=== PATIENT | male | born 1965 | race African-American/Black ===

== ENCOUNTER 2018-01-27 04:08 | Emergency (ER) | payer OTHER, SELFPAY ==
[2018-01-27 04:14] VITALS: BP 151/90; PULSE 88; RESP 18; TEMP 37.5; O2SAT 97; BMI 37.4
[2018-01-27 04:15] VITALS: BP 131/89; PULSE 88; RESP 21; O2SAT 95
--- NOTE | 2018-01-27 04:16 | ED.SOB ---
HPI - SOB/Dyspnea General Chief Complaint: Shortness of Breath/Dyspnea Stated Complaint: shortness of breath Time Seen by Provider: 01/27/18 04:10 Source: patient and family Mode of arrival: ambulatory Limitations: no limitations History of Present Illness 52-year-old male, former smoker presents to the emergency department with a chief complaint of cough, shortness of breath and chest pain with deep breath over the course of the past few days. He denies any runny nose or sore throat. He is not dizzy nor weak or lightheaded. He has cough productive of yellowish sputum. He denies nausea, vomiting or diarrhea. He states deep breath not only exacerbates the cough but also worsens the pain MD Complaint: shortness of breath, cough, pain with inspiration and chest pain Onset (ago): hour(s) Severity: moderate Consistency/Duration: constant Relieving factors: rest and bronchodilators Exacerbating factors: nothing Associated symptoms: pain with inspiration, cough, wheezing and sputum production Related Data Home Medications Medication Instructions Recorded Confirmed [2 EYE DROPS GLAUCOMA] #0 03/13/12 08/05/17 Previous Rx's Medication Instructions Recorded azelastine 0.15 % (205.5 mcg) 1 spray NASAL BID #30 ml 08/05/17 nasal spray doxycycline monohydrate 100 mg PO BID 10 Days #20 cap 01/27/18 prednisone 20 mg PO DAILY #5 tab 01/27/18 Allergies Allergy/AdvReac Type Severity Reaction Status Date / Time No Known Drug Allergies Allergy Verified 08/05/17 14:02 Review of Systems Review of Systems All systems reviewed & are unremarkable except as noted in HPI and below Constitutional Denies chills, Denies fever(s), Denies lethargy and Denies weakness Eyes Denies change in vision, Denies eye discharge, Denies irritation and Denies loss of vision ENT Ears, Nose, Mouth, and Throat: Denies change in voice, Denies neck pain and Denies sore throat Cardiovascular Reports chest pain, Denies irregular heart rhythm, Denies lightheadedness, Denies palpitations, Denies dyspnea, Reports dyspnea on exertion and Denies orthopnea Respiratory Reports cough, Denies dyspnea, Reports dyspnea on exertion and Reports wheezing Gastrointestinal Gastrointestinal: Denies abdominal pain, Denies change in bowel habits, Denies diarrhea, Denies nausea and Denies vomiting Genitourinary Denies hematuria, Denies flank pain, Denies urinary incontinence and Denies urinary urgency Musculoskeletal Denies neck pain Integumentary/Breasts Denies pruritus, Denies erythema, Denies rash and Denies wounds Neurologic Denies confusion, Denies loss of vision and Denies weakness Psychiatric Denies anxiety, Denies confusion, Denies depression, Denies homicidal ideation and Denies suicidal ideation Endocrine Denies palpitations Hematologic/Lymphatic Denies easy bruising Allergic/Immunologic Reports wheezing [facility] Medical History Diabetes (Acute) HTN (hypertension) (Acute) Social History Smoking Status: Current some day smoker Exam Narrative Exam Narrative: GENERAL: 52-year-old male in some mild respiratory distress, clearly also a bit anxious HEAD: Atraumatic. Normocephalic. No temporal or scalp tenderness. EYES: Pupils equal round and reactive. Extraocular motions intact. No scleral icterus. No injection or drainage. ENT: Nose without bleeding, purulent drainage or septal hematoma. Throat without erythema, tonsillar hypertrophy or exudate. Uvula midline. Airway patent. NECK: Trachea midline. No JVD or lymphadenopathy. Supple, nontender, no meningeal signs. CARDIOVASCULAR: Regular rate and rhythm without murmurs, gallops, or rubs. Left anterior chest pain reproducible to palpation RESPIRATORY: Prolonged expiratory phase with expiratory wheeze. Deep breath induces cough GASTROINTESTINAL: Abdomen soft, non-tender, nondistended. No hepato-splenomegaly, or palpable masses. No guarding. EXTREMITIES: No clubbing, cyanosis, or edema. No joint tenderness, effusion, or edema noted. BACK: Nontender without deformity or crepitance. No flank tenderness. NEURO: AOx3. SKIN: No rash or erythema. Initial Vital Signs Initial Vital Signs: Vital Signs Temperature 99.5 F 01/27/18 04:14 Pulse Rate 88 01/27/18 04:14 Respiratory Rate 18 01/27/18 04:14 Blood Pressure 151/90 H 01/27/18 04:14 Pulse Oximetry 97 01/27/18 04:14 Course Course Narrative: Wells' Criteria for Pulmonary Embolism from [employer]ABUY on 01/27/2018 All calculations should be rechecked by clinician prior to use RESULT SUMMARY: 0.0 points Low risk group: 1.3% chance of PE in an ED population. Another study assigned scores ? 4 as ?PE Unlikely? and had a 3% incidence of PE. PERC Rule for Pulmonary Embolism from [employer]ABUY on 01/27/2018 All calculations should be rechecked by clinician prior to use RESULT SUMMARY: 2 criteria If any criteria are positive, the PERC rule cannot be used to rule out PE in this patient. INPUTS: Age ?51 ?> 1 = Yes HR ?100 ?> 0 = No Benjy? on room air <95% ?> 1 = Yes Unilateral leg swelling ?> 0 = No Hemoptysis ?> 0 = No Recent surgery or trauma ?> 0 = No Prior PE or DVT ?> 0 = No Hormone use ?> 0 = No INPUTS: Clinical signs and symptoms of DVT ?> 0 = No PE is #1 diagnosis OR equally likely ?> 0 = No Heart rate > 100 ?> 0 = No Immobilization at least 3 days OR surgery in the previous 4 weeks ?> 0 = No Previous, objectively diagnosed PE or DVT ?> 0 = No Hemoptysis ?> 0 = No Malignancy w/ treatment within 6 months or palliative ?> 0 = No Orders Ordered: Discontinued Medications Albuterol (Ventolin Hfa Prepack) 1 box MISC SEEINSTR ONE Stop: 01/27/18 07:12 Last Admin: 01/27/18 07:14 Dose: 1 box Albuterol/Ipratropium (Duoneb) 3 ml INH NOW ONE Stop: 01/27/18 04:22 Last Admin: 01/27/18 04:52 Dose: 3 ml Methylprednisolone (Solu-Medrol 125 Mg Vial) 125 mg IV NOW ONE Stop: 01/27/18 04:22 Last Admin: 01/27/18 04:35 Dose: 125 mg MDM - SOB/Dyspnea Differential Diagnosis Likely acute exacerbation of chronic obstructive airways disease, congestive heart failure, community acquired pneumonia, asthma with exacerbation and pulmonary embolism Lab Data Attestation: I reviewed the patient's lab results. Result diagrams: 01/27/18 04:20 01/27/18 04:20 Lab Results 01/27/18 01/27/18 01/27/18 Range/Units 04:20 04:20 04:20 WBC 6.6 (4.5-11.0) X10^3/uL RBC 5.52 (4.5-5.9) X10^6/uL Hgb 16.1 (13.5-17.5) g/dL Hct 46.8 (41-53) % MCV 84.9 (80-100) fL MCH 29.1 (26-34) PG MCHC 34.3 (30-36) % RDW 13.4 (11.6-14.8) % Plt Count 202 (150-400) X10^3/uL Neut % (Auto) Not Reportable Lymph % (Auto) Not Reportable Morrow % (Auto) Not Reportable Eos % (Auto) Not Reportable Baso % (Auto) Not Reportable Total Counted 100 Seg Neutrophils % 46.0 (38-70) % Band Neutrophils % 9.0 H (3-7) % Lymphocytes % (Manual) 28.0 (25-45) % Atypical Lymphs % 3.0 H ( - 0) % Monocytes % (Manual) 1.0 L (2-11) % Eosinophils % (Manual) 8.0 H (2-4) % Basophils % (Manual) 5.0 H (0-1) % Neutrophils # (Manual) 3630 (4479-0730) /uL RBC Morphology Normal morphology D-Dimer (<230) ng/mL Sodium 139 (137-145) mmol/L Potassium 4.4 (3.4-5.1) mmol/L Chloride 104 (98-107) mmol/L Carbon Dioxide 19 L (22-32) mmol/L BUN 13 (9-20) mg/dL Creatinine 0.80 (0.66-1.25) mg/dL Estimated GFR > 60.0 (>60) mL/min BUN/Creatinine Ratio 16.3 (6-22) Glucose 264 H (70-100) mg/dL Lactate (0.7-2.1) mmol/L Calcium 9.2 (8.4-10.2) mg/dL Total Bilirubin 0.4 (0.2-1.3) mg/dL AST 42 (17-59) IU/L ALT 47 (21-72) IU/L Alkaline Phosphatase 117 (38-126) U/L Total Creatine Kinase 265 H (55-170) U/L CK-MB (CK-2) 1.50 (<2.37) ng/mL CK-MB (CK-2) Rel Index 0.6 L (1.5-5.0) % Troponin I < 0.012 (0.01-0.034) ng/mL B-Natriuretic Peptide < 100.0 (<100) Total Protein 7.4 (6.3-8.2) g/dL Albumin 4.3 (3.5-5.0) g/dL Globulin 3.1 (1.7-4.1) g/dL Albumin/Globulin Ratio 1.4 (1.0-2.8) Lipase 92 (23-300) U/L Procalcitonin 0.55 H (<0.5) ng/mL Urine RBC (0-5/HPF) Urine WBC (0-5/HPF) Ur Squamous Epith Cells Urine Bacteria (None) Ur Culture Indicated? Micro UA Comment 01/27/18 01/27/18 01/27/18 Range/Units 04:20 04:20 05:35 WBC (4.5-11.0) X10^3/uL RBC (4.5-5.9) X10^6/uL Hgb (13.5-17.5) g/dL Hct (41-53) % MCV (80-100) fL MCH (26-34) PG MCHC (30-36) % RDW (11.6-14.8) % Plt Count (150-400) X10^3/uL Neut % (Auto) Lymph % (Auto) Morrow % (Auto) Eos % (Auto) Baso % (Auto) Total Counted Seg Neutrophils % (38-70) % Band Neutrophils % (3-7) % Lymphocytes % (Manual) (25-45) % Atypical Lymphs % ( - 0) % Monocytes % (Manual) (2-11) % Eosinophils % (Manual) (2-4) % Basophils % (Manual) (0-1) % Neutrophils # (Manual) (0555-9060) /uL RBC Morphology D-Dimer < 200 (<230) ng/mL Sodium (137-145) mmol/L Potassium (3.4-5.1) mmol/L Chloride (98-107) mmol/L Carbon Dioxide (22-32) mmol/L BUN (9-20) mg/dL Creatinine (0.66-1.25) mg/dL Estimated GFR (>60) mL/min BUN/Creatinine Ratio (6-22) Glucose (70-100) mg/dL Lactate 1.2 (0.7-2.1) mmol/L Calcium (8.4-10.2) mg/dL Total Bilirubin (0.2-1.3) mg/dL AST (17-59) IU/L ALT (21-72) IU/L Alkaline Phosphatase (38-126) U/L Total Creatine Kinase (55-170) U/L CK-MB (CK-2) (<2.37) ng/mL CK-MB (CK-2) Rel Index (1.5-5.0) % Troponin I (0.01-0.034) ng/mL B-Natriuretic Peptide (<100) Total Protein (6.3-8.2) g/dL Albumin (3.5-5.0) g/dL Globulin (1.7-4.1) g/dL Albumin/Globulin Ratio (1.0-2.8) Lipase (23-300) U/L Procalcitonin (<0.5) ng/mL Urine RBC None seen (0-5/HPF) Urine WBC None seen (0-5/HPF) Ur Squamous Epith Cells 1-5 /hpf Urine Bacteria None seen (None) Ur Culture Indicated? Cult not indicated Micro UA Comment Not Reportable Urine Dip Bedside Urine Glucose 100 mg/dl Bedside Urine Bilirubin - Negative Bedside Urine Ketone +/- 5 Urine Specific Eaton 1.015 Bedside Urine Occult Blood - Negative Bedside Urine pH 5.5 Bedside Urine Protein +/- 15 Bedside Urine Urobilinogen - Negative Bedside Urine Nitrite - Negative Bedside Urine Leukocytes - Negative Esterase Imaging Data Chest x-ray: Radiologist's impression: [address] [address] XRay Report Signed Patient: Mandie Joyce#: [id number] : 1965Acct:[id number] Age/Sex: 52 / MDate of Service: 01/27/18 Loc: ED Accession Number: [id number] Procedure: XR chest 1V Ordering Provider: Trey Cabrera D.O. PROCEDURE: XR CHEST 1V INDICATIONS: chest pain, shortness of breath TECHNIQUE: One view of the chest was acquired. COMPARISON: [facility], CT, CT ANGIO CHEST PE PROTOCOL, 01/27/2018, 5:57. [facility], CR, CHEST 1 VIEW, 03/13/2012, 1:10. FINDINGS: Surgical changes and devices: None. Lungs and pleura: No pleural effusions or pneumothorax. Lungs are clear. Mediastinum: Mediastinal contours appear normal. Heart size is normal. Bones and chest wall: No suspicious bony lesions. Overlying soft tissues appear unremarkable. IMPRESSION: No acute process. Dictated by: Barry Longoria M.D. on 01/27/2018 at 8:22 CT scan - chest: Radiologist's impression: [place] [address] CT Scan Report Signed Patient: Mandie Joyce#: [id number] : 1965Acct:[id number] Age/Sex: 52 / MDate of Service: 01/27/18 Loc: ED Accession Number: [id number] Procedure: CT angio chest PE protocol Ordering Provider: Trey Cabrera D.O. PROCEDURE: CT ANGIO CHEST PE PROTOCOL INDICATIONS: chest pain, shortness of breath TECHNIQUE: After the administration of intravenous contrast, 2 mm thick sections acquired from the pulmonary apices to the posterior costophrenic angles. 3-dimensional maximum intensity projection (MIP) coronal and sagittal reformats were then acquired through the thorax. For radiation dose reduction, the following was used: automated exposure control, adjustment of mA and/or kV according to patient size. COMPARISON: None. FINDINGS: Image quality: Pulmonary arterial opacification is suboptimal. Pulmonary arteries: Pulmonary arteries are normal in size, and demonstrate no definite intraluminal filling defects to suggest central pulmonary embolism. Lungs and pleura: Lungs are clear. No pleural effusions or pneumothorax. Central and peripheral airways are patent. Mediastinum: Heart size is normal, without pericardial effusion. No mediastinal or hilar adenopathy. Thoracic aorta is normal in caliber and enhancement. Esophagus is normal in caliber, without hiatal hernia. Bones and chest wall: No suspicious bony lesions. Ribs and thoracic spine appear intact throughout. Thyroid gland demonstrates a 10 mm calcified nodule within the right lobe. No axillary or supraclavicular adenopathy. Abdomen: Visualized upper abdominal solid organs appear normal in the early arterial phase of enhancement. IMPRESSION: 1. No definite pulmonary embolus. 2. Calcified right tyroid nodule, which could be further assessed with ultrasound, if clinically indicated. 3. Concordant with preliminary interpretation. Dictated by: Barry Longoria M.D. on 01/27/2018 at 8:27 Approved by: Barry Longoria M.D. on 01/27/2018 at 8:29 ECG Data Attestation: I personally reviewed and interpreted this ECG as follows: Prior ECG tracings: not available for review MDM Narrative Medical decision making narrative: 52-year-old smoking male with history of hypertension, hyperlipidemia, diabetes presents with shortness of breath, wheeze, cough and anterior pleuritic-type chest pain since yesterday. Wells criteria demonstrates low risk but patient is not perk negative hence addition of D-dimer, which (if positive) will dictate the use of CT angiogram Discharge Plan Departure Patient Disposition: Home Clinical Impression: Atypical pneumonia Discharge Date/Time: 01/27/18 07:46 Interventions: ED Discharge Assessment Last Done: 01/27/18 07:46 Instructions: DI for Atypical Pneumonia Activity Restrictions/Additional Instructions: *You have been diagnosed with [ atypical pneumonia ] *What to do: *Take medications as directed: your prescriptions have been electronically transmitted to [facility] at your request *Follow up with your primary care provider in 2-3 days, call for an appointment. Let them know you were seen in the Emergency Department and that we ask that you be seen in follow up *Return to ER if you should have any new, worsening or concerning symptoms Prescriptions: New prednisone 20 mg tablet 20 mg PO DAILY Qty: 5 RF: 0 doxycycline monohydrate 100 mg capsule 100 mg PO BID 10 Days Qty: 20 RF: 0 No Action azelastine [Astepro] 0.15 % (205.5 mcg) spray,non-aerosol 1 spray NASAL BID Qty: 30 RF: 0 [2 EYE DROPS GLAUCOMA] Qty: 0 RF: 0 Referrals: Ander Ramos MD [Primary Care Provider] -
--- NOTE | 2018-01-27 04:29 | ED_ITS ---
HPI - SOB/Dyspnea General Chief Complaint: Shortness of Breath/Dyspnea Stated Complaint: shortness of breath Time Seen by Provider: 01/27/18 04:10 Source: patient and family Mode of arrival: ambulatory Limitations: no limitations History of Present Illness 52-year-old male, former smoker presents to the emergency department with a chief complaint of cough, shortness of breath and chest pain with deep breath over the course of the past few days. He denies any runny nose or sore throat. He is not dizzy nor weak or lightheaded. He has cough productive of yellowish sputum. He denies nausea, vomiting or diarrhea. He states deep breath not only exacerbates the cough but also worsens the pain MD Complaint: shortness of breath, cough, pain with inspiration and chest pain Onset (ago): hour(s) Severity: moderate Consistency/Duration: constant Relieving factors: rest and bronchodilators Exacerbating factors: nothing Associated symptoms: pain with inspiration, cough, wheezing and sputum production Related Data Home Medications Medication Instructions Recorded Confirmed [2 EYE DROPS GLAUCOMA] #0 03/13/12 08/05/17 Previous Rx's Medication Instructions Recorded azelastine 0.15 % (205.5 mcg) 1 spray NASAL BID #30 ml 08/05/17 nasal spray doxycycline monohydrate 100 mg PO BID 10 Days #20 cap 01/27/18 prednisone 20 mg PO DAILY #5 tab 01/27/18 Allergies Allergy/AdvReac Type Severity Reaction Status Date / Time No Known Drug Allergies Allergy Verified 08/05/17 14:02 Review of Systems Review of Systems All systems reviewed & are unremarkable except as noted in HPI and below Constitutional Denies chills, Denies fever(s), Denies lethargy and Denies weakness Eyes Denies change in vision, Denies eye discharge, Denies irritation and Denies loss of vision ENT Ears, Nose, Mouth, and Throat: Denies change in voice, Denies neck pain and Denies sore throat Cardiovascular Reports chest pain, Denies irregular heart rhythm, Denies lightheadedness, Denies palpitations, Denies dyspnea, Reports dyspnea on exertion and Denies orthopnea Respiratory Reports cough, Denies dyspnea, Reports dyspnea on exertion and Reports wheezing Gastrointestinal Gastrointestinal: Denies abdominal pain, Denies change in bowel habits, Denies diarrhea, Denies nausea and Denies vomiting Genitourinary Denies hematuria, Denies flank pain, Denies urinary incontinence and Denies urinary urgency Musculoskeletal Denies neck pain Integumentary/Breasts Denies pruritus, Denies erythema, Denies rash and Denies wounds Neurologic Denies confusion, Denies loss of vision and Denies weakness Psychiatric Denies anxiety, Denies confusion, Denies depression, Denies homicidal ideation and Denies suicidal ideation Endocrine Denies palpitations Hematologic/Lymphatic Denies easy bruising Allergic/Immunologic Reports wheezing [facility] Medical History Diabetes (Acute) HTN (hypertension) (Acute) Social History Smoking Status: Current some day smoker Exam Narrative Exam Narrative: GENERAL: 52-year-old male in some mild respiratory distress, clearly also a bit anxious HEAD: Atraumatic. Normocephalic. No temporal or scalp tenderness. EYES: Pupils equal round and reactive. Extraocular motions intact. No scleral icterus. No injection or drainage. ENT: Nose without bleeding, purulent drainage or septal hematoma. Throat without erythema, tonsillar hypertrophy or exudate. Uvula midline. Airway patent. NECK: Trachea midline. No JVD or lymphadenopathy. Supple, nontender, no meningeal signs. CARDIOVASCULAR: Regular rate and rhythm without murmurs, gallops, or rubs. Left anterior chest pain reproducible to palpation RESPIRATORY: Prolonged expiratory phase with expiratory wheeze. Deep breath induces cough GASTROINTESTINAL: Abdomen soft, non-tender, nondistended. No hepato-splenomegaly , or palpable masses. No guarding. EXTREMITIES: No clubbing, cyanosis, or edema. No joint tenderness, effusion, or edema noted. BACK: Nontender without deformity or crepitance. No flank tenderness. NEURO: AOx3. SKIN: No rash or erythema. Initial Vital Signs Initial Vital Signs: Vital Signs Temperature 99.5 F 01/27/18 04:14 Pulse Rate 88 01/27/18 04:14 Respiratory Rate 18 01/27/18 04:14 Blood Pressure 151/90 H 01/27/18 04:14 Pulse Oximetry 97 01/27/18 04:14 Course Course Narrative: Wells' Criteria for Pulmonary Embolism from [employer] on All calculations should be rechecked by clinician prior to use RESULT SUMMARY: 0.0 points Low risk group: 1.3% chance of PE in an ED population. Another study assigned scores ? 4 as ?PE Unlikely? and had a 3% incidence of PE. PERC Rule for Pulmonary Embolism from [employer] on 01/27/2018 All calculations should be rechecked by clinician prior to use RESULT SUMMARY: 2 criteria If any criteria are positive, the PERC rule cannot be used to rule out PE in this patient. INPUTS: Age ?51 ?> 1 = Yes HR ?100 ?> 0 = No Benjy? on room air <95% ?> 1 = Yes Unilateral leg swelling ?> 0 = No Hemoptysis ?> 0 = No Recent surgery or trauma ?> 0 = No Prior PE or DVT ?> 0 = No Hormone use ?> 0 = No INPUTS: Clinical signs and symptoms of DVT ?> 0 = No PE is #1 diagnosis OR equally likely ?> 0 = No Heart rate > 100 ?> 0 = No Immobilization at least 3 days OR surgery in the previous 4 weeks ?> 0 = No Previous, objectively diagnosed PE or DVT ?> 0 = No Hemoptysis ?> 0 = No Malignancy w/ treatment within 6 months or palliative ?> 0 = No Orders Ordered: Discontinued Medications Albuterol (Ventolin Hfa Prepack) 1 box MISC SEEINSTR ONE Stop: 01/27/18 07:12 Last Admin: 01/27/18 07:14 Dose: 1 box Albuterol/Ipratropium (Duoneb) 3 ml INH NOW ONE Stop: 01/27/18 04:22 Last Admin: 01/27/18 04:52 Dose: 3 ml Methylprednisolone (Solu-Medrol 125 Mg Vial) 125 mg IV NOW ONE Stop: 01/27/18 04:22 Last Admin: 01/27/18 04:35 Dose: 125 mg MDM - SOB/Dyspnea Differential Diagnosis Likely acute exacerbation of chronic obstructive airways disease, congestive heart failure, community acquired pneumonia, asthma with exacerbation and pulmonary embolism Lab Data Attestation: I reviewed the patient's lab results. Result diagrams: 01/27/18 04:20 01/27/18 04:20 Lab Results 01/27/18 01/27/18 01/27/18 Range/Units 04:20 04:20 04:20 WBC 6.6 (4.5-11.0) X10^3/uL RBC 5.52 (4.5-5.9) X10^6/uL Hgb 16.1 (13.5-17.5) g/dL Hct 46.8 (41-53) % MCV 84.9 (80-100) fL MCH 29.1 (26-34) PG MCHC 34.3 (30-36) % RDW 13.4 (11.6-14.8) % Plt Count 202 (150-400) X10^3/uL Neut % (Auto) Not Reportable Lymph % (Auto) Not Reportable [place] % (Auto) Not Reportable Eos % (Auto) Not Reportable Baso % (Auto) Not Reportable Total Counted 100 Seg Neutrophils % 46.0 (38-70) % Band Neutrophils % 9.0 H (3-7) % Lymphocytes % (Manual) 28.0 (25-45) % Atypical Lymphs % 3.0 H ( - 0) % Monocytes % (Manual) 1.0 L (2-11) % Eosinophils % (Manual) 8.0 H (2-4) % Basophils % (Manual) 5.0 H (0-1) % Neutrophils # (Manual) 3630 (9713-9921) /uL RBC Morphology Normal morphology D-Dimer (<230) ng/mL Sodium 139 (137-145) mmol/L Potassium 4.4 (3.4-5.1) mmol/L Chloride 104 (98-107) mmol/L Carbon Dioxide 19 L (22-32) mmol/L BUN 13 (9-20) mg/dL Creatinine 0.80 (0.66-1.25) mg/dL Estimated GFR > 60.0 (>60) mL/min BUN/Creatinine Ratio 16.3 (6-22) Glucose 264 H (70-100) mg/dL Lactate (0.7-2.1) mmol/L Calcium 9.2 (8.4-10.2) mg/dL Total Bilirubin 0.4 (0.2-1.3) mg/dL AST 42 (17-59) IU/L ALT 47 (21-72) IU/L Alkaline Phosphatase 117 (38-126) U/L Total Creatine Kinase 265 H (55-170) U/L CK-MB (CK-2) 1.50 (<2.37) ng/mL CK-MB (CK-2) Rel Index 0.6 L (1.5-5.0) % Troponin I < 0.012 (0.01-0.034) ng/mL B-Natriuretic Peptide < 100.0 (<100) Total Protein 7.4 (6.3-8.2) g/dL Albumin 4.3 (3.5-5.0) g/dL Globulin 3.1 (1.7-4.1) g/dL Albumin/Globulin Ratio 1.4 (1.0-2.8) Lipase 92 (23-300) U/L Procalcitonin 0.55 H (<0.5) ng/mL Urine RBC (0-5/HPF) Urine WBC (0-5/HPF) Ur Squamous Epith Cells Urine Bacteria (None) Ur Culture Indicated? Micro UA Comment 01/27/18 01/27/18 01/27/18 Range/Units 04:20 04:20 05:35 WBC (4.5-11.0) X10^3/uL RBC (4.5-5.9) X10^6/uL Hgb (13.5-17.5) g/dL Hct (41-53) % MCV (80-100) fL MCH (26-34) PG MCHC (30-36) % RDW (11.6-14.8) % Plt Count (150-400) X10^3/uL Neut % (Auto) Lymph % (Auto) [place] % (Auto) Eos % (Auto) Baso % (Auto) Total Counted Seg Neutrophils % (38-70) % Band Neutrophils % (3-7) % Lymphocytes % (Manual) (25-45) % Atypical Lymphs % ( - 0) % Monocytes % (Manual) (2-11) % Eosinophils % (Manual) (2-4) % Basophils % (Manual) (0-1) % Neutrophils # (Manual) (2576-3557) /uL RBC Morphology D-Dimer < 200 (<230) ng/mL Sodium (137-145) mmol/L Potassium (3.4-5.1) mmol/L Chloride (98-107) mmol/L Carbon Dioxide (22-32) mmol/L BUN (9-20) mg/dL Creatinine (0.66-1.25) mg/dL Estimated GFR (>60) mL/min BUN/Creatinine Ratio (6-22) Glucose (70-100) mg/dL Lactate 1.2 (0.7-2.1) mmol/L Calcium (8.4-10.2) mg/dL Total Bilirubin (0.2-1.3) mg/dL AST (17-59) IU/L ALT (21-72) IU/L Alkaline Phosphatase (38-126) U/L Total Creatine Kinase (55-170) U/L CK-MB (CK-2) (<2.37) ng/mL CK-MB (CK-2) Rel Index (1.5-5.0) % Troponin I (0.01-0.034) ng/mL B-Natriuretic Peptide (<100) Total Protein (6.3-8.2) g/dL Albumin (3.5-5.0) g/dL Globulin (1.7-4.1) g/dL Albumin/Globulin Ratio (1.0-2.8) Lipase (23-300) U/L Procalcitonin (<0.5) ng/mL Urine RBC None seen (0-5/HPF) Urine WBC None seen (0-5/HPF) Ur Squamous Epith Cells 1-5 /hpf Urine Bacteria None seen (None) Ur Culture Indicated? Cult not indicated Micro UA Comment Not Reportable Urine Dip Bedside Urine Glucose 100 mg/dl Bedside Urine Bilirubin - Negative Bedside Urine Ketone +/- 5 Urine Specific [place] 1.015 Bedside Urine Occult Blood - Negative Bedside Urine pH 5.5 Bedside Urine Protein +/- 15 Bedside Urine Urobilinogen - Negative Bedside Urine Nitrite - Negative Bedside Urine Leukocytes - Negative Esterase Imaging Data Chest x-ray: Radiologist's impression: [address] [address] XRay Report Signed Patient: Mandie Joyce#: [id number] : 1965Acct:[id number] Age/Sex: 52 / MDate of Service: 01/27/18 Loc: ED Accession Number: [id number] Procedure: XR chest 1V Ordering Provider: Trey Cabrera D.O. PROCEDURE: XR CHEST 1V INDICATIONS: chest pain, shortness of breath TECHNIQUE: One view of the chest was acquired. COMPARISON: [facility], CT, CT ANGIO CHEST PE PROTOCOL, 01/27/2018, 5:57. [facility], CR, CHEST 1 VIEW, 03/13/2012, 1:10. FINDINGS: Surgical changes and devices: None. Lungs and pleura: No pleural effusions or pneumothorax. Lungs are clear. Mediastinum: Mediastinal contours appear normal. Heart size is normal. Bones and chest wall: No suspicious bony lesions. Overlying soft tissues appear unremarkable. IMPRESSION: No acute process. Dictated by: Barry Longoria M.D. on 01/27/2018 at 8:22 CT scan - chest: Radiologist's impression: [place] [address] CT Scan Report Signed Patient: Mandie Joyce#: [id number] : 1965Acct:[id number] Age/Sex: 52 / MDate of Service: 01/27/18 Loc: ED Accession Number: [id number] Procedure: CT angio chest PE protocol Ordering Provider: Trey Cabrera D.O. PROCEDURE: CT ANGIO CHEST PE PROTOCOL INDICATIONS: chest pain, shortness of breath TECHNIQUE: After the administration of intravenous contrast, 2 mm thick sections acquired from the pulmonary apices to the posterior costophrenic angles. 3-dimensional maximum intensity projection (MIP) coronal and sagittal reformats were then acquired through the thorax. For radiation dose reduction, the following was used: automated exposure control, adjustment of mA and/or kV according to patient size. COMPARISON: None. FINDINGS: Image quality: Pulmonary arterial opacification is suboptimal. Pulmonary arteries: Pulmonary arteries are normal in size, and demonstrate no definite intraluminal filling defects to suggest central pulmonary embolism. Lungs and pleura: Lungs are clear. No pleural effusions or pneumothorax. Central and peripheral airways are patent. Mediastinum: Heart size is normal, without pericardial effusion. No mediastinal or hilar adenopathy. Thoracic aorta is normal in caliber and enhancement. Esophagus is normal in caliber, without hiatal hernia. Bones and chest wall: No suspicious bony lesions. Ribs and thoracic spine appear intact throughout. Thyroid gland demonstrates a 10 mm calcified nodule within the right lobe. No axillary or supraclavicular adenopathy. Abdomen: Visualized upper abdominal solid organs appear normal in the early arterial phase of enhancement. IMPRESSION: 1. No definite pulmonary embolus. 2. Calcified right tyroid nodule, which could be further assessed with ultrasound, if clinically indicated. 3. Concordant with preliminary interpretation. Dictated by: Barry Longoria M.D. on 01/27/2018 at 8:27 Approved by: Barry Longoria M.D. on 01/27/2018 at 8:29 ECG Data Attestation: I personally reviewed and interpreted this ECG as follows: Prior ECG tracings: not available for review MDM Narrative Medical decision making narrative: 52-year-old smoking male with history of hypertension, hyperlipidemia, diabetes presents with shortness of breath, wheeze, cough and anterior pleuritic-type chest pain since yesterday. Wells criteria demonstrates low risk but patient is not perk negative hence addition of D-dimer, which (if positive) will dictate the use of CT angiogram Discharge Plan Departure Patient Disposition: Home Clinical Impression: Atypical pneumonia Discharge Date/Time: 01/27/18 07:46 Interventions: ED Discharge Assessment Last Done: 01/27/18 07:46 Instructions: DI for Atypical Pneumonia Activity Restrictions/Additional Instructions: *You have been diagnosed with [ atypical pneumonia ] *What to do: *Take medications as directed: your prescriptions have been electronically transmitted to [facility] at your request *Follow up with your primary care provider in 2-3 days, call for an appointment. Let them know you were seen in the Emergency Department and that we ask that you be seen in follow up *Return to ER if you should have any new, worsening or concerning symptoms Prescriptions: New prednisone 20 mg tablet 20 mg PO DAILY Qty: 5 RF: 0 doxycycline monohydrate 100 mg capsule 100 mg PO BID 10 Days Qty: 20 RF: 0 No Action azelastine [Astepro] 0.15 % (205.5 mcg) spray,non-aerosol 1 spray NASAL BID Qty: 30 RF: 0 [2 EYE DROPS GLAUCOMA] Qty: 0 RF: 0 Referrals: Ander Ramos MD [Primary Care Provider] -
[2018-01-27] MEDS: methylPREDNISolone 125 MG/2 ML VIAL IV (04:35)
[2018-01-27 04:44] LABS: Hematocrit 46.8 % (41-53); Hemoglobin 16.1 g/dL (13.5-17.5); Mean Corpuscular HGB Conc 34.3 % (30-36); Mean Corpuscular Hemoglobin 29.1 PG (26-34); Mean Corpuscular Volume 84.9 fL (80-100); Platelet Count 202 X10^3/uL (150-400); Red Blood Cell Count 5.52 X10^6/uL (4.5-5.9); Red Cell Distribution Width 13.4 % (11.6-14.8); White Blood Cell Count 6.6 X10^3/uL (4.5-11.0)
[2018-01-27 04:45] VITALS: BP 129/80; PULSE 87; RESP 18; O2SAT 96
[2018-01-27 04:45] LABS: Add Manual Diff / Slide Review YES
[2018-01-27 04:50] LABS: Lactate (Lactic Acid) 1.2 mmol/L (0.7-2.1)
[2018-01-27 04:51] LABS: Alanine Aminotransferase 47 IU/L (21-72); Albumin 4.3 g/dL (3.5-5.0); Albumin Globulin Ratio 1.4 (1.0-2.8); Alkaline Phosphatase 117 U/L (38-126); Aspartate Aminotransferase 42 IU/L (17-59); BUN Creatinine Ratio 16.3 (6-22); Bilirubin Total 0.4 mg/dL (0.2-1.3); Blood Urea Nitrogen 13 mg/dL (9-20); Calcium 9.2 mg/dL (8.4-10.2); Carbon Dioxide 19 mmol/L (22-32); Chloride 104 mmol/L (98-107); Estimated Glomerular Filt Rate > 60.0 mL/min (>60); Globulin 3.1 g/dL (1.7-4.1); Glucose 264 mg/dL (70-100); Lipase 92 U/L (23-300); Potassium 4.4 mmol/L (3.4-5.1); Sodium 139 mmol/L (137-145); Total Protein 7.4 g/dL (6.3-8.2)
[2018-01-27] MEDS: ALBUTEROL/IPRATROPIUM 3 ML AMPUL INH (04:52)
[2018-01-27 04:53] LABS: Creatine Kinase 265 U/L (55-170)
[2018-01-27 05:03] LABS: Troponin I < 0.012 ng/mL (0.01-0.034)
[2018-01-27 05:06] LABS: CKMB % Relative Index 0.6 % (1.5-5.0)
[2018-01-27 05:09] LABS: HEMOLYSIS 71 (0-50)
[2018-01-27 05:12] LABS: Procalcitonin 0.55 ng/mL (<0.5)
[2018-01-27 05:16] LABS: B Type Natriuretic Peptide < 100.0 (<100)
--- NOTE | 2018-01-27 05:27 | PC.NURSE ---
Pt reports breathing improved. Lung sounds still exp wheezing through out.
--- NOTE | 2018-01-27 05:51 | DI.CT.S_ITS ---
PROCEDURE: CT ANGIO CHEST PE PROTOCOL INDICATIONS: chest pain, shortness of breath TECHNIQUE: After the administration of intravenous contrast, 2 mm thick sections acquired from the pulmonary apices to the posterior costophrenic angles. 3-dimensional maximum intensity projection (MIP) coronal and sagittal reformats were then acquired through the thorax. For radiation dose reduction, the following was used: automated exposure control, adjustment of mA and/or kV according to patient size. COMPARISON: None. FINDINGS: Image quality: Pulmonary arterial opacification is suboptimal. Pulmonary arteries: Pulmonary arteries are normal in size, and demonstrate no definite intraluminal filling defects to suggest central pulmonary embolism. Lungs and pleura: Lungs are clear. No pleural effusions or pneumothorax. Central and peripheral airways are patent. Mediastinum: Heart size is normal, without pericardial effusion. No mediastinal or hilar adenopathy. Thoracic aorta is normal in caliber and enhancement. Esophagus is normal in caliber, without hiatal hernia. Bones and chest wall: No suspicious bony lesions. Ribs and thoracic spine appear intact throughout. Thyroid gland demonstrates a 10 mm calcified nodule within the right lobe. No axillary or supraclavicular adenopathy. Abdomen: Visualized upper abdominal solid organs appear normal in the early arterial phase of enhancement. IMPRESSION: 1. No definite pulmonary embolus. 2. Calcified right tyroid nodule, which could be further assessed with ultrasound, if clinically indicated. 3. Concordant with preliminary interpretation. Dictated by: Barry Longoria M.D. on 01/27/2018 at 8:27 Approved by: Barry Longoria M.D. on 01/27/2018 at 8:29
[2018-01-27 05:55] VITALS: BP 120/83; PULSE 87; RESP 19; O2SAT 93
[2018-01-27 05:55] LABS: D Dimer < 200 ng/mL (<230)
--- NOTE | 2018-01-27 05:57 | PC.NURSE ---
Pt declines the additional neb treatment at this time. Pt has sleep apnea and during sleeping, pt desats to 89-91% in RA.
[2018-01-27 05:59] VITALS: PULSE 89; RESP 16; O2SAT 95
[2018-01-27 06:08] LABS: Bacteria Urine None Seen; Culture Indicated Urine Cult Not Indicated; RBC Urine None Seen (0-5/HPF); Squamous Epithelial Cell Urine 1-5 /HPF; WBC Urine None Seen (0-5/HPF)
[2018-01-27 06:45] VITALS: BP 132/69; PULSE 84; RESP 16; O2SAT 98
[2018-01-27 06:57] LABS: Neutrophils Absolute Manual 3630 /uL (3000-5900); Total Cells Counted 100
[2018-01-27 06:58] LABS: RBC Morphology Normal Morphology
[2018-01-27] MEDS: ALBUTEROL HFA PREPACK 1 BOX MISC (07:14)
== END 2018-01-27 07:46 | disposition home or self-care (01) ==
PROVIDERS: Emergency Provider Emergency Medicine; Family Provider Family Medicine; PCP Family Medicine
DX: J18.9 Pneumonia, unspecified organism (principal)
CPT/HCPCS: 36415; 71045; 71275; 80053; 81003; 81015; 82550; 82553; 83605; 83690; 83880; 84145; 84484; 85025; 85379; 87040; 93005; 94640; 96374; 99283; 99285; J2930; Q9967

== ENCOUNTER → 2020-06-12 07:32 | Outpatient (CLI) | payer OTHER, SELFPAY ==
[2020-06-12] MEDS: COVID-19 VACC, Ad26(JANSSEN)/PF 0.5 ML IM (07:36)
== END ==
PROVIDERS: Family Provider Family Medicine; PCP Family Medicine; Visit Provider Internal Medicine
DX: Z23 Encounter for immunization (principal)
CPT/HCPCS: 0031A; 91303